=== PATIENT | female | born 1945 | race Caucasian/White ===

== ENCOUNTER 2016-07-14 10:50 | Inpatient (IN) | payer MEDICARE, OTHER ==
[~2016-07-14] VITALS: Ht 162.6 cm; Wt 58.6 kg
[2016-07-14 11:37] LABS: DEFINITIVE VIEW TRANSMISSION; Hematocrit 25.7 % (36.0-46.0); Hemoglobin 8.1 g/dL (12.2-16.2); Mean Corpuscular Hemoglobin 29.6 pg (28.0-32.0); Mean Corpuscular Hgb Conc. 31.3 g/dL (32.0-36.0); Mean Corpuscular Volume 94.4 fL (80.0-100.0); Mean Platelet Volume 7.4 fL (7.4-10.4); Platelet Count (auto) 372 10^3/uL (140-450); SUSPECT VIEW TRANSMISSION
[2016-07-14 11:53] LABS: Red Cell Distribution Width 22.2 % (11.6-16.0)
[2016-07-14 11:54] LABS: Myelocytes % 0; Promyelocytes % 0; Reactive Lymphocytes 0
[2016-07-14 11:55] LABS: Albumin 1.9 g/dL (3.4-5.0); Anion Gap 13 (5-15); Aspartate Aminotransferase 9 U/L (15-37); BUN/Creatinine Ratio 18.8; Blood Urea Nitrogen 18 mg/dL (7-18); Calcium 8.3 mg/dL (8.5-10.1); Carbon Dioxide 22 mmol/L (21-32); Chloride 106 mmol/L (98-107); GFR African American 74 mL/min; GFR Non-African American 61 mL/min; Glucose 93 mg/dL (74-106); Magnesium 1.6 mg/dL (1.6-2.6); Potassium 3.1 mmol/L (3.5-5.1); Sodium 141 mmol/L (136-145)
[2016-07-14 12:00] LABS: Alkaline Phosphatase 113 U/L (45-117); Bilirubin, Total 0.4 mg/dL (0.2-1.0)
[2016-07-14] MEDS ORDERED: VANCOMYCIN 1GM/250ML D5W 250 ML IV ONE (12:00)
[2016-07-14] MEDS ORDERED: PIPERACILLIN-TAZOB 3.375GM 100 ML IV ONE (12:00)
[2016-07-14] MEDS ORDERED: SODIUM CHLORIDE 0.9% 1,000 ML IV ONE (12:00)
[2016-07-14] MEDS ORDERED: KETOROLAC TROMETH 30 MG/ML 1ML VIAL IV ONE (12:15)
[2016-07-14 13:05] LABS: Anisocytosis Moderate; Metamyelocytes % 3; Platelet Estimate Adequate
[2016-07-14 13:12] LABS: White Blood Cell 72.1 10^3/uL (4.4-10.8)
[2016-07-14] MEDS ORDERED: VANCOMYCIN PER PHARMACY 0 MG IV SCH (13:15)
[2016-07-14] MEDS ORDERED: cefTRIAXone 1GM/50ML D5W 50 ML IV ONE (13:15)
[2016-07-14] MEDS ORDERED: SODIUM CHLORIDE 0.9% 2,000 ML IV ONE (13:30)
[2016-07-14] MEDS ORDERED: MORPHINE SULF INJ 2 MG/ML SYRINGE 1ML IV PRN (13:30)
[2016-07-14] MEDS ORDERED: NITROGLYCERIN 0.4 MG SL TAB SL PRN (13:30)
[2016-07-14] MEDS ORDERED: ONDANSETRON HCL 4 MG/2 ML VIAL IV PRN (13:30)
[2016-07-14] MEDS ORDERED: FAMOTIDINE (10MG/ML) 2ML VL IV ONE (13:30)
[2016-07-14] MEDS: POTASSIUM CHL 20MEQ/100ML 100 ML IV SCH ×2 (13:36→14:23)
[2016-07-14] MEDS ORDERED: SOD CHL 0.45% WITH 20MEQ KCL 1,000 ML IV ONE (14:15)
[2016-07-14] MEDS ORDERED: SODIUM CHLORIDE 0.9% 1,000 ML IV SCH (15:30)
[2016-07-14 15:43] LABS: INR 1.15 (0.9-1.15)
[2016-07-14 15:46] LABS: Prothrombin Time 12.5 sec (9.37-12.3)
[2016-07-14] MEDS: PIPERACILLIN-TAZOB 3.375GM 100 ML IV SCH (18:46)
[2016-07-14] MEDS: FAMOTIDINE (10MG/ML) 2ML VL IV SCH (22:20)
[2016-07-14] MEDS: MORPHINE SULF INJ 2 MG/ML SYRINGE 1ML IV PRN (22:26)
[2016-07-15] VITALS (59 sets, daily range): BP systolic 97–169; BP diastolic 44–80
[2016-07-15] MEDS ORDERED: SOD CHL 0.45% WITH 20MEQ KCL 1,000 ML IV SCH
[2016-07-15] MEDS ORDERED: VANCOMYCIN 1GM/250ML D5W 250 ML IV SCH
[2016-07-15 01:07] LABS: Hematocrit 22.8 % (36.0-46.0); Hemoglobin 7.5 g/dL (12.2-16.2)
[2016-07-15] MEDS: PIPERACILLIN-TAZOB 3.375GM 100 ML IV SCH ×4 (06:00→23:51)
[2016-07-15 06:47] LABS: DEFINITIVE VIEW TRANSMISSION; Hematocrit 21.1 % (36.0-46.0); Mean Corpuscular Hemoglobin 30.4 pg (28.0-32.0); Mean Corpuscular Volume 92.2 fL (80.0-100.0); Mean Platelet Volume 7.6 fL (7.4-10.4); Platelet Count (auto) 335 10^3/uL (140-450); SUSPECT VIEW TRANSMISSION
[2016-07-15 06:50] LABS: White Blood Cell 71.9 10^3/uL (4.4-10.8)
[2016-07-15 06:51] LABS: Promyelocytes % 0; Reactive Lymphocytes 0
[2016-07-15] MEDS ORDERED: fentaNYL CITRATE 10 ML ONE (06:52)
[2016-07-15] MEDS ORDERED: fentaNYL CITRATE 100 MCG/2 ML VL ONE (06:52)
[2016-07-15] MEDS ORDERED: HYDROmorphone HCL 2 MG/ML VL ONE ×2 (06:52→09:03)
[2016-07-15] MEDS ORDERED: MIDAZOLAM HCL 1MG/1ML-2 ML VIAL ONE ×3 (06:52→09:03)
[2016-07-15] MEDS ORDERED: ETOMIDATE (2MG/ML) 20ML VIAL IV ONE (06:53)
[2016-07-15] MEDS ORDERED: SUCCINYLCHOLINE CHLORIDE 20 MG/ML 10ML VIAL IV ONE (06:53)
[2016-07-15] MEDS ORDERED: ROCURONIUM 10MG/ML 10ML VIAL IV ONE (06:53)
[2016-07-15] MEDS ORDERED: SODIUM CHLORIDE LOCK 50 ML ONE (06:53)
[2016-07-15] MEDS ORDERED: ePHEDrine SULFATE 50 MG/ML AMP ONE (06:53)
[2016-07-15 07:04] LABS: Albumin 1.6 g/dL (3.4-5.0); BUN/Creatinine Ratio 25.4; Bilirubin, Total 0.2 mg/dL (0.2-1.0); Calcium 7.2 mg/dL (8.5-10.1); Potassium 3.5 mmol/L (3.5-5.1)
[2016-07-15 07:27] LABS: Metamyelocytes % 1; Myelocytes % 1
[2016-07-15 07:28] LABS: Anisocytosis Moderate; Platelet Estimate Adequate
[2016-07-15] MEDS ORDERED: cefTRIAXone 1GM/50ML D5W 50 ML IV SCH (09:00)
[2016-07-15] MEDS: fentaNYL Drip 2500mCg/250mlNS 250 ML IV SCH (11:15)
[2016-07-15] MEDS: MIDAZOLAM DRIP 100 mg/100mL NS 100 ML IV SCH (11:30)
[2016-07-15] MEDS: FAMOTIDINE (10MG/ML) 2ML VL IV SCH ×2 (12:00→21:25)
[2016-07-15] MEDS ORDERED: LACTATED RINGER'S 1,000 ML IV SCH (12:00)
[2016-07-15 12:18] LABS: Base Excess -11.6 mmol/L (-2.0-2.0); Blood COHb 0.9 % (0.5-1.5); Blood MetHb 0.1 % (0.0-1.5); HCO3 14.9 mmol/L (22-26.0); MODE VENT - A/C; PCO2 35.6 mmHg (35.0-45.0); PCO2(T) 35.6 mmHg (35.0-45.0); PO2 149.7 mmHg (80.0-100.0); PO2(T) 149.7 mmHg (80.0-100.0); Sample Type Arterial; pH 7.239 (7.350-7.450)
[2016-07-15] MEDS: SODIUM BICARBONATE 50ML VIAL 50 ML in SOD CHL 0.45% 1,000 ML IV SCH ×2 (13:50→23:50)
[2016-07-15 16:01] LABS: Urine Bilirubin Negative (Negative); Urine Blood Negative /uL (Negative); Urine Color Yellow (Yellow); Urine Glucose TRACE mg/dL (Normal); Urine Ketone Negative (Negative); Urine Nitrite Negative (Negative); Urine RBC 5 /hpf (0 - 4); Urine Squamous Epithelial Cell FEW /hpf (<5); Urine Urobilinogen Normal (Negative); Urine pH 5.5 (5.0-8.0)
[2016-07-15] MEDS ORDERED: HYDROmorphone HCL 2 MG/ML VL IV PRN (16:30)
[2016-07-15] MEDS ORDERED: POTA-167 PO (17:56)
[2016-07-15] MEDS ORDERED: OMEP20CA74 PO (17:56)
[2016-07-15] MEDS ORDERED: NAPR-607 PO (17:56)
[2016-07-15] MEDS ORDERED: LISI-646 PO (17:56)
[2016-07-15] MEDS ORDERED: AMOX500C2 PO (17:56)
[2016-07-15] MEDS ORDERED: TRAM50TA2 PO (17:56)
[2016-07-15] MEDS ORDERED: IBU600T PO (17:56)
[2016-07-15] MEDS ORDERED: DONETAB5 PO (17:56)
[2016-07-16] VITALS (100 sets, daily range): BP systolic 87–152; BP diastolic 36–66
[2016-07-16 03:50] LABS: DEFINITIVE VIEW TRANSMISSION; Hematocrit 31.8 % (36.0-46.0); Hemoglobin 10.4 g/dL (12.2-16.2); Mean Corpuscular Hemoglobin 30.5 pg (28.0-32.0); Mean Corpuscular Hgb Conc. 32.8 g/dL (32.0-36.0); Mean Corpuscular Volume 93.1 fL (80.0-100.0); Mean Platelet Volume 7.7 fL (7.4-10.4); Platelet Count (auto) 319 10^3/uL (140-450); Red Cell Distribution Width 18.3 % (11.6-16.0); SUSPECT VIEW TRANSMISSION
[2016-07-16 04:16] LABS: Promyelocytes % 0; Reactive Lymphocytes 0
[2016-07-16 04:27] LABS: Calcium 6.8 mg/dL (8.5-10.1); Potassium 3.6 mmol/L (3.5-5.1)
[2016-07-16 04:31] LABS: BUN/Creatinine Ratio 22.8
[2016-07-16] MEDS: PIPERACILLIN-TAZOB 3.375GM 100 ML IV SCH ×3 (06:39→18:30)
[2016-07-16] MEDS ORDERED: DEXTROSE 50% SYRINGE 50 ML IV ONE (06:44)
[2016-07-16] MEDS: MIDAZOLAM DRIP 100 mg/100mL NS 100 ML IV SCH ×2 (06:47→23:40)
[2016-07-16] MEDS ORDERED: DEXTROSE (50%) 50ML SYRG IV ONE (07:00)
[2016-07-16 07:11] LABS: Base Excess -6.9 mmol/L (-2.0-2.0); Blood 02Sat 96.2 % (96-100); Blood COHb 0.7 % (0.5-1.5); Blood MetHb 0.1 % (0.0-1.5); HHb 3.8 % (0.0-5.0); MODE VENT - A/C; O2Hb 95.4 % (94.0-97.0); PCO2 28.5 mmHg (35.0-45.0); PCO2(T) 28.5 mmHg (35.0-45.0); PO2 93.3 mmHg (80.0-100.0); PO2(T) 93.3 mmHg (80.0-100.0); Sample Type Arterial; pH 7.393 (7.350-7.450)
[2016-07-16 09:38] LABS: Metamyelocytes % 2; Myelocytes % 2; Platelet Estimate Adequate
[2016-07-16] MEDS: SODIUM BICARBONATE 50ML VIAL 50 ML in SOD CHL 0.45% 1,000 ML IV SCH (10:00)
[2016-07-16] MEDS: FAMOTIDINE (10MG/ML) 2ML VL IV SCH ×2 (10:03→23:25)
[2016-07-16] MEDS ORDERED: NOREPINEPHRINE BITARTRATE 250 ML IV ONE (11:10)
[2016-07-16] MEDS: SODIUM BICARBONATE 50ML VIAL 100 ML in D5W 5% 1,000 ML IV SCH ×2 (11:15→20:36)
[2016-07-16] MEDS ORDERED: VANCOMYCIN PER PHARMACY 0 MG IV SCH (11:15)
[2016-07-16] MEDS: NOREPINEPHRINE BITARTRATE 250 ML IV SCH (11:30)
[2016-07-16] MEDS ORDERED: VANCOMYCIN 1GM/250ML D5W 250 ML IV ONE (15:00)
[2016-07-16] MEDS: fentaNYL Drip 2500mCg/250mlNS 250 ML IV SCH (16:35)
[2016-07-17] VITALS (100 sets, daily range): BP systolic 100–169; BP diastolic 42–88
[2016-07-17] MEDS: PIPERACILLIN-TAZOB 3.375GM 100 ML IV SCH ×4 (02:30→23:32)
[2016-07-17 04:08] LABS: DEFINITIVE VIEW TRANSMISSION; Hematocrit 27.4 % (36.0-46.0); Hemoglobin 9.2 g/dL (12.2-16.2); Mean Corpuscular Hemoglobin 30.6 pg (28.0-32.0); Mean Corpuscular Hgb Conc. 33.4 g/dL (32.0-36.0); Mean Corpuscular Volume 91.7 fL (80.0-100.0); Mean Platelet Volume 7.6 fL (7.4-10.4); Platelet Count (auto) 248 10^3/uL (140-450); Red Cell Distribution Width 18.6 % (11.6-16.0); SUSPECT VIEW TRANSMISSION
[2016-07-17 04:18] LABS: White Blood Cell 56.4 10^3/uL (4.4-10.8)
[2016-07-17 04:19] LABS: Reactive Lymphocytes 0
[2016-07-17 04:30] LABS: Albumin 1.1 g/dL (3.4-5.0); Potassium 3.1 mmol/L (3.5-5.1)
[2016-07-17 04:32] LABS: BUN/Creatinine Ratio 19.2
[2016-07-17 04:34] LABS: Bilirubin, Total 0.3 mg/dL (0.2-1.0); Total Protein 4.6 g/dL (6.4-8.2)
[2016-07-17 05:27] LABS: Metamyelocytes % 6; Myelocytes % 8; Promyelocytes % 0
[2016-07-17 05:30] LABS: Burr Cells FEW; Platelet Estimate Adequate
[2016-07-17] MEDS ORDERED: FUROSEMIDE 20 MG/2 ML VIAL IV ONE (06:15)
[2016-07-17] MEDS ORDERED: ALBUMIN 25% 50 ML IV ONE (07:00)
[2016-07-17] MEDS ORDERED: ALBUMIN 25% 100 ML IV SCH (07:00)
[2016-07-17] MEDS: POTASSIUM CHL 20MEQ/100ML 100 ML IV SCH ×2 (07:02→08:15)
[2016-07-17] MEDS: SODIUM BICARBONATE 50ML VIAL 100 ML in D5W 5% 1,000 ML IV SCH (09:28)
[2016-07-17] MEDS: FAMOTIDINE (10MG/ML) 2ML VL IV SCH ×2 (10:00→21:30)
[2016-07-17] MEDS: fentaNYL Drip 2500mCg/250mlNS 250 ML IV SCH (10:58)
[2016-07-17] MEDS: NOREPINEPHRINE BITARTRATE 250 ML IV SCH (11:08)
[2016-07-17 14:23] LABS: Base Excess 3.2 mmol/L (-2.0-2.0); Blood 02Sat 95.6 % (96-100); Blood COHb 0.5 % (0.5-1.5); Blood MetHb 0.3 % (0.0-1.5); HCO3 25.7 mmol/L (22-26.0); HHb 4.4 % (0.0-5.0); MODE VENT - CPAP; O2Hb 94.8 % (94.0-97.0); PCO2 31.7 mmHg (35.0-45.0); PCO2(T) 31.7 mmHg (35.0-45.0); PO2 79.9 mmHg (80.0-100.0); PO2(T) 79.9 mmHg (80.0-100.0); Pressure Support 8; Sample Type Arterial; Spont Vt 293; pH 7.526 (7.350-7.450)
[2016-07-17] MEDS: MORPHINE SULF INJ 2 MG/ML SYRINGE 1ML IV PRN ×2 (14:45→19:20)
[2016-07-17] MEDS ORDERED: VANCOMYCIN 1GM/250ML D5W 250 ML IV SCH (15:00)
[2016-07-18] VITALS (74 sets, daily range): BP systolic 119–150; BP diastolic 50–82
[2016-07-18 03:50] LABS: DEFINITIVE VIEW TRANSMISSION; Hematocrit 27.7 % (36.0-46.0); Hemoglobin 9.2 g/dL (12.2-16.2); Mean Corpuscular Hemoglobin 30.6 pg (28.0-32.0); Mean Corpuscular Hgb Conc. 33.1 g/dL (32.0-36.0); Mean Corpuscular Volume 92.4 fL (80.0-100.0); Mean Platelet Volume 7.6 fL (7.4-10.4); Platelet Count (auto) 212 10^3/uL (140-450); SUSPECT VIEW TRANSMISSION
[2016-07-18 04:11] LABS: White Blood Cell 35.7 10^3/uL (4.4-10.8)
[2016-07-18 04:12] LABS: Albumin 1.2 g/dL (3.4-5.0); Calcium 7.2 mg/dL (8.5-10.1); Magnesium 1.1 mg/dL (1.6-2.6); Myelocytes % 0; Promyelocytes % 0; Reactive Lymphocytes 0
[2016-07-18 04:14] LABS: Bilirubin, Total 0.3 mg/dL (0.2-1.0); Total Protein 4.5 g/dL (6.4-8.2)
[2016-07-18 05:25] LABS: Metamyelocytes % 6
[2016-07-18 05:26] LABS: Burr Cells FEW; Platelet Estimate Adequate
[2016-07-18] MEDS: PIPERACILLIN-TAZOB 3.375GM 100 ML IV SCH ×4 (05:30→23:16)
[2016-07-18] MEDS: POTASSIUM CHL 20MEQ/100ML 100 ML IV SCH ×6 (06:17→18:45)
[2016-07-18] MEDS: MORPHINE SULF INJ 2 MG/ML SYRINGE 1ML IV PRN ×3 (09:57→23:55)
[2016-07-18] MEDS: FAMOTIDINE (10MG/ML) 2ML VL IV SCH ×2 (10:00→21:41)
[2016-07-18] MEDS: MIDAZOLAM DRIP 100 mg/100mL NS 100 ML IV SCH (10:58)
[2016-07-18] MEDS: fentaNYL Drip 2500mCg/250mlNS 250 ML IV SCH (10:58)
[2016-07-18] MEDS: NOREPINEPHRINE BITARTRATE 250 ML IV SCH (11:08)
[2016-07-18] MEDS ORDERED: SODIUM BICARBONATE 50ML VIAL 100 ML in D5W 5% 1,000 ML IV SCH (11:15)
[2016-07-18] MEDS ORDERED: SOD CHL 0.45% WITH 20MEQ KCL 1,000 ML IV SCH ×2 (13:00→19:00)
[2016-07-19] VITALS (7 sets, daily range): BP systolic 97–145; BP diastolic 55–78
[2016-07-19] MEDS: PIPERACILLIN-TAZOB 3.375GM 100 ML IV SCH ×3 (05:06→17:54)
[2016-07-19] MEDS ORDERED: cefTRIAXone 1GM/50ML D5W 50 ML IV SCH (09:00)
[2016-07-19] MEDS: FAMOTIDINE (10MG/ML) 2ML VL IV SCH ×2 (09:13→22:34)
[2016-07-19] MEDS: HYDROcodone-ACET 5/325MG TAB PO PRN (11:53)
[2016-07-19] MEDS ORDERED: POTASSIUM CHL 20 Meq TABLET PO ONE (14:15)
[2016-07-19] MEDS ORDERED: FUROSEMIDE 20 MG/2 ML VIAL IV ONE (14:15)
[2016-07-19 14:50] LABS: DEFINITIVE VIEW TRANSMISSION; Hematocrit 32.4 % (36.0-46.0); Hemoglobin 10.7 g/dL (12.2-16.2); Mean Corpuscular Hemoglobin 30.6 pg (28.0-32.0); Mean Corpuscular Hgb Conc. 33.1 g/dL (32.0-36.0); Mean Corpuscular Volume 92.4 fL (80.0-100.0); Mean Platelet Volume 7.7 fL (7.4-10.4); Platelet Count (auto) 276 10^3/uL (140-450); Red Cell Distribution Width 18.3 % (11.6-16.0); SUSPECT VIEW TRANSMISSION
[2016-07-19 15:11] LABS: Albumin 1.4 g/dL (3.4-5.0); BUN/Creatinine Ratio 16.7; Bilirubin, Total 0.3 mg/dL (0.2-1.0); Calcium 7.6 mg/dL (8.5-10.1); Potassium 3.6 mmol/L (3.5-5.1); Total Protein 5.2 g/dL (6.4-8.2); White Blood Cell 43.3 10^3/uL (4.4-10.8)
[2016-07-19 15:12] LABS: Promyelocytes % 0; Reactive Lymphocytes 0
[2016-07-19 16:09] LABS: Burr Cells FEW; Metamyelocytes % 10; Myelocytes % 12; Platelet Estimate Adequate
[2016-07-19] MEDS: BOOST PLUS 8 ounce PO SCH (17:54)
[2016-07-20] VITALS (7 sets, daily range): BP systolic 103–142; BP diastolic 55–69
[2016-07-20] MEDS: PIPERACILLIN-TAZOB 3.375GM 100 ML IV SCH ×4 (00:28→17:26)
[2016-07-20 06:32] LABS: DEFINITIVE VIEW TRANSMISSION; Hematocrit 28.6 % (36.0-46.0); Hemoglobin 9.5 g/dL (12.2-16.2); Mean Corpuscular Hemoglobin 30.9 pg (28.0-32.0); Mean Corpuscular Hgb Conc. 33.2 g/dL (32.0-36.0); Mean Corpuscular Volume 93.2 fL (80.0-100.0); Mean Platelet Volume 8.1 fL (7.4-10.4); Platelet Count (auto) 241 10^3/uL (140-450); Red Cell Distribution Width 18.5 % (11.6-16.0); SUSPECT VIEW TRANSMISSION
[2016-07-20 06:55] LABS: White Blood Cell 40.5 10^3/uL (4.4-10.8)
[2016-07-20 06:56] LABS: Promyelocytes % 0; Reactive Lymphocytes 0
[2016-07-20 07:03] LABS: Calcium 7.6 mg/dL (8.5-10.1); Potassium 3.8 mmol/L (3.5-5.1)
[2016-07-20] MEDS: BOOST PLUS 8 ounce PO SCH ×3 (08:00→17:26)
[2016-07-20] MEDS: HYDROcodone-ACET 5/325MG TAB PO PRN (08:38)
[2016-07-20] MEDS: FAMOTIDINE (10MG/ML) 2ML VL IV SCH ×2 (11:07→22:04)
[2016-07-20 11:29] LABS: Metamyelocytes % 3; Myelocytes % 7
[2016-07-20 11:32] LABS: Burr Cells FEW; Platelet Estimate Adequate
[2016-07-21] MEDS: PIPERACILLIN-TAZOB 3.375GM 100 ML IV SCH ×3 (00:34→12:14)
[2016-07-21 04:47] VITALS: BP 160/73
[2016-07-21] MEDS: HYDROcodone-ACET 5/325MG TAB PO PRN (06:26)
[2016-07-21 09:00] VITALS: BP 138/73
[2016-07-21 10:10] LABS: DEFINITIVE VIEW TRANSMISSION; Hematocrit 30.7 % (36.0-46.0); Hemoglobin 10.2 g/dL (12.2-16.2); Mean Corpuscular Hemoglobin 29.9 pg (28.0-32.0); Mean Corpuscular Hgb Conc. 33.2 g/dL (32.0-36.0); Mean Corpuscular Volume 90.1 fL (80.0-100.0); Mean Platelet Volume 7.9 fL (7.4-10.4); Platelet Count (auto) 279 10^3/uL (140-450); Red Cell Distribution Width 16.7 % (11.6-16.0); SUSPECT VIEW TRANSMISSION
[2016-07-21] MEDS: FAMOTIDINE (10MG/ML) 2ML VL IV SCH ×2 (10:13→21:17)
[2016-07-21] MEDS: BOOST PLUS 8 ounce PO SCH ×3 (10:14→17:50)
[2016-07-21 10:16] LABS: Calcium 7.7 mg/dL (8.5-10.1); Chloride 106 mmol/L (98-107); Potassium 3.5 mmol/L (3.5-5.1); Sodium 140 mmol/L (136-145)
[2016-07-21 10:20] LABS: Anion Gap 13 (5-15); BUN/Creatinine Ratio 12.5; Blood Urea Nitrogen 7 mg/dL (7-18); Carbon Dioxide 21 mmol/L (21-32); GFR African American 137 mL/min; GFR Non-African American 113 mL/min; Glucose 81 mg/dL (74-106)
[2016-07-21 10:27] LABS: White Blood Cell 41.1 10^3/uL (4.4-10.8)
[2016-07-21 10:28] LABS: Promyelocytes % 0; Reactive Lymphocytes 0
[2016-07-21 12:04] LABS: Metamyelocytes % 1; Myelocytes % 7
[2016-07-21 12:06] LABS: Platelet Estimate Adequate
[2016-07-21 12:07] LABS: Burr Cells FEW
[2016-07-21 12:08] LABS: Tear Drop Cells FEW
[2016-07-21] MEDS ORDERED: MORPHINE SULF INJ 2 MG/ML SYRINGE 1ML IV PRN ×2 (12:30)
[2016-07-21 13:00] VITALS: BP 116/80
[2016-07-21] MEDS: metroNIDAZOLE 500 MG TAB PO SCH ×2 (15:05→21:17)
[2016-07-21 17:00] VITALS: BP 132/68
[2016-07-21 22:00] VITALS: BP 130/81
[2016-07-22] VITALS (7 sets, daily range): BP systolic 103–140; BP diastolic 57–84
[2016-07-22] MEDS: HYDROcodone-ACET 5/325MG TAB PO PRN (05:07)
[2016-07-22] MEDS: metroNIDAZOLE 500 MG TAB PO SCH ×3 (06:21→21:19)
[2016-07-22] MEDS: BOOST PLUS 8 ounce PO SCH ×3 (08:27→17:43)
[2016-07-22] MEDS: LEVOFLOXACIN 500 MG TAB PO SCH (10:36)
[2016-07-22] MEDS: FAMOTIDINE (10MG/ML) 2ML VL IV SCH (10:36)
[2016-07-22] MEDS: FAMOTIDINE 20 MG TAB PO SCH (21:31)
[2016-07-23] MEDS: HYDROcodone-ACET 5/325MG TAB PO PRN (04:47)
[2016-07-23 05:00] VITALS: BP 145/73
[2016-07-23 06:11] LABS: DEFINITIVE Y; Hematocrit 28.4 % (36.0-46.0); Hemoglobin 9.4 g/dL (12.2-16.2); Mean Corpuscular Hemoglobin 30.5 pg (28.0-32.0); Mean Corpuscular Hgb Conc. 33.2 g/dL (32.0-36.0); Mean Corpuscular Volume 91.9 fL (80.0-100.0); Mean Platelet Volume 7.5 fL (7.4-10.4); Platelet Count (auto) 285 10^3/uL (140-450); Red Cell Distribution Width 18.6 % (11.6-16.0); SUSPECT Y; White Blood Cell 28.7 10^3/uL (4.4-10.8)
[2016-07-23 06:20] LABS: Promyelocytes % 0; Reactive Lymphocytes 0
[2016-07-23] MEDS: metroNIDAZOLE 500 MG TAB PO SCH ×2 (06:21→14:47)
[2016-07-23] MEDS: BOOST PLUS 8 ounce PO SCH ×3 (08:00→17:57)
[2016-07-23 09:00] VITALS: BP 141/71
[2016-07-23] MEDS: LEVOFLOXACIN 500 MG TAB PO SCH (09:51)
[2016-07-23] MEDS: FAMOTIDINE 20 MG TAB PO SCH (09:52)
[2016-07-23 13:00] VITALS: BP 123/68
[2016-07-23 15:03] LABS: Metamyelocytes % 6; Myelocytes % 9
[2016-07-23 15:04] LABS: Platelet Estimate Adequate
[2016-07-23 15:05] LABS: Anisocytosis Slight
== END 2016-07-23 17:50 | disposition short-term general hospital, planned readmission (82) | DRG 853 ==
LOC: ER 10:50 → TELE 10:51 → ICU WEST 23:37 → TELE-WESTW 07-18 22:45
PROVIDERS: ADMIT Internal Medicine; ATTEND Internal Medicine
PROC: 5A1945Z Respiratory Ventilation, 24-96 Consecutive Hours (ICD-10-PCS; 2016-07-15)
PROC: 0DTP0ZZ Resection of Rectum, Open Approach (ICD-10-PCS; 2016-07-15)
PROC: 0DTN0ZZ Resection of Sigmoid Colon, Open Approach (ICD-10-PCS; 2016-07-15)
PROC: 30233N1 Transfusion of Nonautologous Red Blood Cells into Peripheral Vein, Percutaneous Approach (ICD-10-PCS; 2016-07-15)
PROC: 0BH17EZ Insertion of Endotracheal Airway into Trachea, Via Natural or Artificial Opening (ICD-10-PCS; 2016-07-15)
PROC: 0D1M0Z4 Bypass Descending Colon to Cutaneous, Open Approach (ICD-10-PCS; principal; 2016-07-15 07:34)
PROC: 07DQ3ZX Extraction of Sternum Bone Marrow, Percutaneous Approach, Diagnostic (ICD-10-PCS; 2016-07-16)
DX: A41.9 Sepsis, unspecified organism (principal); E43 Unspecified severe protein-calorie malnutrition; J96.00 Acute respiratory failure, unspecified whether with hypoxia or hypercapnia; R65.21 Severe sepsis with septic shock; K57.80 Diverticulitis of intestine, part unspecified, with perforation and abscess without bleeding; N39.0 Urinary tract infection, site not specified; C92.50 Acute myelomonocytic leukemia, not having achieved remission; C93.00 Acute monoblastic/monocytic leukemia, not having achieved remission; N18.2 Chronic kidney disease, stage 2 (mild); I13.10 Hypertensive heart and chronic kidney disease without heart failure, with stage 1 through stage 4 chronic kidney disease, or unspecified chronic kidney disease; E83.51 Hypocalcemia; E87.6 Hypokalemia; B96.20 Unspecified Escherichia coli [E. coli] as the cause of diseases classified elsewhere; M19.90 Unspecified osteoarthritis, unspecified site; D64.9 Anemia, unspecified; Z90.89 Acquired absence of other organs; Z82.49 Family history of ischemic heart disease and other diseases of the circulatory system; Z68.22 Body mass index [BMI] 22.0-22.9, adult; Z79.899 Other long term (current) drug therapy; Z71.3 Dietary counseling and surveillance
CPT/HCPCS: 36415; 36600; 51702; 71010; 74176; 80048; 80053; 81001; 81206; 81207; 82805; 82962; 83605; 83735; 84132; 84484; 85007; 85014; 85018; 85027; 85060; 85097; 85610; 85730; 86850; 86900; 86901; 86920; 87040; 87070; 87075; 87076; 87077; 87081; 87086; 87186; 87205; 88307; 88360; 93005; 94003; 96361; 96365; 96367; 96368; 96375; 97110; 97116; 97530; 99291; J0330; J0696; J1885; J2250; J2405; J2543; J3010; J3480; J3490; J7060

== ENCOUNTER 2018-05-16 21:40 | Inpatient (IN) | payer MEDICARE, OTHER | END 2018-05-21 02:00 | disposition other institution (70) | LOC: TELE 05-17 05:09 → TELE-EAST 05-17 08:33 → ER 21:40 | PROC: 30253R1 (ICD-10-PCS; principal; ~2018-05-16) | DX: A41.9 Sepsis, unspecified organism (principal); E43 Unspecified severe protein-calorie malnutrition; C95.00 Acute leukemia of unspecified cell type not having achieved remission; D61.818 Other pancytopenia; D68.9 Coagulation defect, unspecified; E87.6 Hypokalemia; I10 Essential (primary) hypertension ==

== ENCOUNTER 2018-11-14 10:53 | Inpatient (IN) | payer MEDICARE, OTHER ==
[2018-11-14] VITALS (7 sets, daily range): BP systolic 123–161; BP diastolic 55–74
[~2018-11-14] VITALS: Ht 162.6 cm; Wt 57.2 kg
[~2018-11-14 10:53] MED LIST: ACYC-161 PO; ACYC1CAP23 PO; ALLO300T2 PO; CHOL100046 PO; CHOL20007 PO; CYCL1TAB18 PO; DICL1GEL26 TOP; DOCU1CAP46 PO; FOLI1TAB6 PO; FURO1TAB33 PO; GABA300C10 PO; HYDR-531 PO; HYDR1TAB97 PO; LEVO250T19 PO; LISI10TA6 PO; METO25TA62 PO; METO5TAB2 PO; OME20T PO; ONDA-143 PO; POLY33504 PO; POM PO; PRED1SUS4 OP; SUCR1TAB PO; THIA100T10 PO
[2018-11-14] MEDS ORDERED: SODIUM CHLORIDE 0.9% 1,000 ML IVB ONE (12:59)
[2018-11-14 13:31] LABS: Mean Corpuscular Hemoglobin 29.3 pg (28.0-32.0); Red Blood Cells 2.38 10^6/uL (4.0-5.20)
[2018-11-14 13:33] LABS: Hematocrit 20.4 % (36.0-46.0); Mean Corpuscular Hgb Conc. 34.1 g/dL (32.0-36.0); Mean Corpuscular Volume 85.8 fL (80.0-100.0); Red Cell Distribution Width 14.7 % (11.8-14.3)
[2018-11-14 13:40] LABS: INR 0.98 (0.9-1.15); Partial Thromboplastin Time 29.1 sec (23.64-32.05)
[2018-11-14 13:44] LABS: Alanine Aminotransferase 9 U/L (13-56); Albumin 2.4 g/dL (3.4-5.0); Anion Gap 6 (5-15); Aspartate Aminotransferase < 3 U/L (15-37); Blood Urea Nitrogen 25 mg/dL (7-18); Calcium 8.6 mg/dL (8.5-10.1); Carbon Dioxide 23 mmol/L (21-32); Chloride 109 mmol/L (98-107); GFR African American 73 mL/min; GFR Non-African American 61 mL/min; Glucose 112 mg/dL (74-106); Potassium 4.3 mmol/L (3.5-5.1); Sodium 138 mmol/L (136-145)
[2018-11-14 13:46] LABS: Alkaline Phosphatase 55 U/L (45-117); Bilirubin, Total < 0.1 mg/dL (0.2-1.0); Platelet Count (auto) 16 10^3/uL (140-450); White Blood Cell 1.2 10^3/uL (4.4-10.8)
[2018-11-14 13:47] LABS: Basophils % (manual) 0 (0.0-2.0); Eosinophils % (manual) 0 (0-7); Metamyelocytes % 0; Myelocytes % 0; Promyelocytes % 0
[2018-11-14] MEDS ORDERED: MORPHINE SULF INJ 2 MG/ML SYRINGE 1ML IV PRN (17:00)
[2018-11-14] MEDS ORDERED: TEMAZEPAM 15 MG CAP PO PRN (17:00)
[2018-11-14] MEDS ORDERED: LACTULOSE 20Gm/30ML SOLN PO PRN (17:00)
[2018-11-14] MEDS ORDERED: ACETAMINOPHEN 500 MG TAB PO PRN (17:00)
[2018-11-14] MEDS ORDERED: NITROGLYCERIN 0.4 MG SL TAB SL PRN (17:00)
[2018-11-14] MEDS ORDERED: traMADol HCL 50 MG TAB PO PRN (17:00)
[2018-11-14] MEDS ORDERED: ONDANSETRON HCL 4 MG/2 ML VIAL IV PRN (17:00)
[2018-11-14] MEDS: SODIUM CHLORIDE 0.9% 1,000 ML IV SCH ×2 (17:13→21:00)
[2018-11-14 18:21] LABS: Band Neutrophils % (manual) 3; Blast Cells 4; Lymphocytes % (manual) 55 (10.0-50.0); Monocytes % (manual) 8 (0-12); Reactive Lymphocytes 5
[2018-11-14] MEDS ORDERED: LEVOFLOXACIN 500 MG TAB PO ONE (18:45)
--- NOTE | 2018-11-14 19:40 | NUR ---
Telemetry admit from [facility] admitted to Telemetry unit after SBAR received. Patient oriented to Manjula Roque RN primary RN, unit, room, bed, and unit policies regarding patient care and visiting hours. Patient now on continuous telemetry monitoring, tele box # [id number] and telemetry reading on arrival to unit is SR. Patient weighed by bedscale and encouraged to call if they need something. All questions and concerns addressed, patient verbalized understanding, will continue to monitor Note: []
--- NOTE | 2018-11-14 19:45 | NUR ---
1st bag of PRBC done, no BT reaction noted, will continue to monitor
--- NOTE | 2018-11-14 20:51 | NUR ---
2nd bag of PRBC transfused after verification of primary RN and 2nd RN Nilton, will monitor for BT reaction
[2018-11-14] MEDS: CLINDAMYCIN 300MG IV 50 ML IV SCH (21:31)
[2018-11-15] VITALS (9 sets, daily range): BP systolic 124–158; BP diastolic 60–92
--- NOTE | 2018-11-15 00:27 | NUR ---
2nd PRBC done, no BT reaction noted, will continue to monitor
--- NOTE | 2018-11-15 01:34 | NUR ---
Pheresis platelet started after verification by primary RN and 2nd RN Nilton, will continue to monitor
--- NOTE | 2018-11-15 04:28 | NUR ---
Picture taken on right hip swelling and ecchymosis, present on admission for reference.
--- NOTE | 2018-11-15 04:42 | NUR ---
Pheresis platelet done, no BT reaction noted, will continue to monitor
[2018-11-15] MEDS: CLINDAMYCIN 300MG IV 50 ML IV SCH ×3 (06:29→22:06)
[2018-11-15 06:44] LABS: Hemoglobin 9.4 g/dL (12.2-16.2); Mean Corpuscular Hemoglobin 28.8 pg (28.0-32.0); Mean Corpuscular Hgb Conc. 33.7 g/dL (32.0-36.0); Mean Corpuscular Volume 85.3 fL (80.0-100.0); Platelet Count (auto) 41 10^3/uL (140-450); Red Blood Cells 3.28 10^6/uL (4.0-5.20)
--- NOTE | 2018-11-15 06:50 | NUR ---
Received a critical WBC of 1.3 from Lab. Lanied hospitalist, awaiting call back
[2018-11-15 06:51] LABS: Basophils % (manual) 0 (0.0-2.0); Eosinophils % (manual) 0 (0-7); Myelocytes % 0; Promyelocytes % 0; White Blood Cell 1.3 10^3/uL (4.4-10.8)
--- NOTE | 2018-11-15 07:05 | NUR ---
Hospitalist Jami called back and ordered to put the patient on Neutropenic Isolation
--- NOTE | 2018-11-15 07:30 | NUR ---
Opening Shift Note Assumed care of patient, awake, alert, and oriented x4. No S/S of distress/SOB or pain. Midline double lumen in left upper arm is asymptomatic, intact, patent, and saline locked. Bed is locked and in lowest position and call light is within reach. Instructed on POC and to call for assist PRN, and patient verbalized understanding. Will continue to monitor for changes Q1hr and PRN.
[2018-11-15 07:32] LABS: Band Neutrophils % (manual) 7; Blast Cells 6; Lymphocytes % (manual) 30 (10.0-50.0); Metamyelocytes % 2; Monocytes % (manual) 16 (0-12); Reactive Lymphocytes 4
--- NOTE | 2018-11-15 09:31 | NUR ---
Dr. Plaza, Oncologist, at bedside; MD states that patient does seek current chemo treatment at [facility], and is cleared to leave and continue treatment there.
[2018-11-15] MEDS: LEVOFLOXACIN 500 MG TAB PO SCH (10:12)
[2018-11-15] MEDS: PANTOPRAZOLE 40 MG TAB PO SCH (10:12)
[2018-11-15] MEDS ORDERED: SODIUM CHLORIDE 0.9% 1,000 ML IV SCH (14:30)
--- NOTE | 2018-11-15 19:30 | NUR ---
Opening Shift Note Assumed care of patient, awake and alert. No S/S of distress/SOB or pain. Patient incontinent to urine. Updated on POC and to call for assist PRN, patient verbalized understanding, call light within reach, will continue to monitor for changes Q1hr and PRN.
[2018-11-16 05:24] VITALS: BP 168/88
[2018-11-16] MEDS: CLINDAMYCIN 300MG IV 50 ML IV SCH (06:13)
[2018-11-16 07:06] LABS: Mean Corpuscular Hemoglobin 28.8 pg (28.0-32.0); Platelet Count (auto) 31 10^3/uL (140-450)
[2018-11-16 07:08] LABS: Hematocrit 27.2 % (36.0-46.0); Hemoglobin 9.2 g/dL (12.2-16.2); Mean Corpuscular Hgb Conc. 33.9 g/dL (32.0-36.0); Mean Corpuscular Volume 84.8 fL (80.0-100.0); Red Blood Cells 3.21 10^6/uL (4.0-5.20); Red Cell Distribution Width 14.5 % (11.8-14.3)
[2018-11-16 07:16] LABS: Basophils % (manual) 0 (0.0-2.0); Eosinophils % (manual) 0 (0-7); Myelocytes % 0; Promyelocytes % 0; White Blood Cell 1.1 10^3/uL (4.4-10.8)
[2018-11-16 07:25] LABS: BUN/Creatinine Ratio 23.6; Calcium 8.7 mg/dL (8.5-10.1); Potassium 4.2 mmol/L (3.5-5.1)
[2018-11-16 08:05] LABS: Band Neutrophils % (manual) 5; Blast Cells 6; Lymphocytes % (manual) 35 (10.0-50.0); Metamyelocytes % 2; Monocytes % (manual) 25 (0-12); Reactive Lymphocytes 5
[2018-11-16] MEDS: LEVOFLOXACIN 500 MG TAB PO SCH (09:13)
[2018-11-16] MEDS: PANTOPRAZOLE 40 MG TAB PO SCH (09:13)
[2018-11-16 09:24] VITALS: BP 154/86
--- NOTE | 2018-11-16 12:31 | NUR ---
NUTRITION ASSESSMENT NOTES Please refer to link notes of nutrition screen form filed under the intervention section of the plan of care for further details. Est. Needs: 1700 kcal to 2000 kcal (30-35 kcal/kgBW), 68 gms to 92 gms pro (1.2-1.6 gms/kgBW d/t severe hypoalbuminemia,CA on chemo). Will continue to monitor pertinent labs and reassess nutrient need prn Thank you. Addendum: 11/16/18 at [address] Amended: Links added.
[2018-11-16 13:00] VITALS: BP 146/87
[2018-11-16] MEDS ORDERED: MUPI2OIN2 EACHNOSTRI (13:39)
[2018-11-16] MEDS ORDERED: CLINDAMYCIN HCL 150 MG CAP PO SCH (14:00)
--- NOTE | 2018-11-16 15:40 | NUR ---
Discharge planning per consult, patient has orders to resume home health. Patient was on services with [facility]. Referral faxed to [facility], placed a follow up call, spoke with Ame, and was advised that they will resume care for this patient and will send a nurse out tomorrow 11.17.18. Nurse Torres was not available to advised. Asked unit nurse to ask her to see my note. Addendum: 11/16/18 at 1546 by DELONTE JORGE Amended: Links added.
[2018-11-16 17:00] VITALS: BP 156/86
--- NOTE | 2018-11-16 19:50 | NUR ---
Discharge instructions given as ordered. Encourage to follow up with PMD as instructed. All questions and concerns addressed. Patient verbalized understanding. Medication reconciliation form completed and copy given to patient. Telemetry unit returned to ICU. Patient taken to vehicle via wheelchair with all personal belongings, accompanied by staff and family member. No distress noted at time of departure.
[2018-11-16] MEDS ORDERED: MUPIROCIN 2% OINT 15gm or 22gm EACHNOSTRI SCH (22:00)
== END 2018-11-16 19:50 | disposition home health service (06) | DRG 808 ==
LOC: EDBD 10:53 → ER 10:53 → TELE 10:54 → TELE-WESTW 19:09
PROVIDERS: ADMIT Internal Medicine; ATTEND Internal Medicine
PROC: 30233N1 Transfusion of Nonautologous Red Blood Cells into Peripheral Vein, Percutaneous Approach (ICD-10-PCS; 2018-11-14)
PROC: 02HV33Z Insertion of Infusion Device into Superior Vena Cava, Percutaneous Approach (ICD-10-PCS; 2018-11-14)
PROC: 30233R1 Transfusion of Nonautologous Platelets into Peripheral Vein, Percutaneous Approach (ICD-10-PCS; principal; 2018-11-15)
DX: D61.810 Antineoplastic chemotherapy induced pancytopenia (principal); E43 Unspecified severe protein-calorie malnutrition; C92.00 Acute myeloblastic leukemia, not having achieved remission; D61.818 Other pancytopenia; R55 Syncope and collapse; K21.9 Gastro-esophageal reflux disease without esophagitis; I10 Essential (primary) hypertension; K57.90 Diverticulosis of intestine, part unspecified, without perforation or abscess without bleeding; M19.90 Unspecified osteoarthritis, unspecified site; R32 Unspecified urinary incontinence; F32.9 Major depressive disorder, single episode, unspecified; A49.02 Methicillin resistant Staphylococcus aureus infection, unspecified site; T45.1X5A Adverse effect of antineoplastic and immunosuppressive drugs, initial encounter; S70.01XA Contusion of right hip, initial encounter; W18.39XA Other fall on same level, initial encounter; Z82.49 Family history of ischemic heart disease and other diseases of the circulatory system; Z95.1 Presence of aortocoronary bypass graft; Z93.3 Colostomy status; Y93.89 Activity, other specified; Y92.091 Bathroom in other non-institutional residence as the place of occurrence of the external cause; Y99.8 Other external cause status; Z68.21 Body mass index [BMI] 21.0-21.9, adult
CPT/HCPCS: 36415; 36430; 70450; 71045; 73502; 80048; 80053; 82550; 82962; 83735; 84484; 85007; 85027; 85610; 85730; 86850; 86900; 86901; 86920; 87081; 93005; 93970; 94761; 96361; 96365; 97116; 97530; G0378; J3490